=== PATIENT | male | born 1960 | race Two or more races ===

== ENCOUNTER 2018-06-29 20:45 | Emergency (ER) | payer OTHER ==
[~2018-06-29] VITALS: Ht 180.3 cm; Wt 81.6 kg
[2018-06-29 21:22] LABS: Basophils # (auto) 0.1 uL; Eosinophils # (auto) 0.1 uL; Eosinophils % (auto) 1.3 % (0.0-7.0); Hematocrit 45.3 % (41.0-53.0); Hemoglobin 15.3 g/dL (13.5-17.5); Lymphocytes # (auto) 3.2 uL; Lymphocytes % (auto) 35.9 % (10.0-50.0); Mean Corpuscular Hemoglobin 33.2 pg (28.0-32.0); Mean Corpuscular Hgb Conc. 33.8 g/dL (32.0-36.0); Mean Corpuscular Volume 98.2 fL (80.0-100.0); Monocytes # (auto) 0.7 uL; Monocytes % (auto) 8.4 % (0.0-12.0); Neutrophils # (auto) 4.7 uL; Neutrophils % (auto) 53.4 % (37.0-80.0); Nucleated Red Blood Cells % 0.1 %; Platelet Count (auto) 147 10^3/uL (140-450); Red Blood Cells 4.61 10^6/uL (4.5-5.90); Red Cell Distribution Width 13.5 % (11.8-14.3); White Blood Cell 8.8 10^3/uL (4.4-10.8)
[2018-06-29 21:41] LABS: Alanine Aminotransferase 109 U/L (16-61); Albumin 4.1 g/dL (3.4-5.0); Anion Gap 7 (5-15); Aspartate Aminotransferase 79 U/L (15-37); Blood Urea Nitrogen 14 mg/dL (7-18); Calcium 8.2 mg/dL (8.5-10.1); Carbon Dioxide 23 mmol/L (21-32); Chloride 110 mmol/L (98-107); Glucose 110 mg/dL (74-106); Potassium 3.4 mmol/L (3.5-5.1); Sodium 140 mmol/L (136-145)
[2018-06-29 21:46] LABS: Alkaline Phosphatase 100 U/L (45-117); BUN/Creatinine Ratio 18.7; Bilirubin, Total 0.4 mg/dL (0.2-1.0); GFR African American > 60 mL/min; GFR Non-African American > 60 mL/min; Total Protein 7.7 g/dL (6.4-8.2)
[2018-06-29 22:26] VITALS: BP 168/100
[2018-06-29 22:27] LABS: Urine WBC None Seen /hpf (0 - 3)
[2018-06-29 22:51] LABS: Urine Bacteria NONE SEEN /hpf (None Seen); Urine Blood Negative /uL (Negative); Urine Specific Gravity 1.001 (1.001-1.035)
[2018-06-29 23:09] LABS: Amphetamine Screen, Urine NEGATIVE (NEGATIVE); Barbiturate Scree,Urine NEGATIVE (NEGATIVE); Benzodiazephine Screen, Urine NEGATIVE (NEGATIVE); Cannabinoid Screen, Urine NEGATIVE (NEGATIVE); Cocaine Screen, Urine NEGATIVE (NEGATIVE); Opiate Scree,Urine NEGATIVE (NEGATIVE); Phencyclidine Screen, Urine NEGATIVE (NEGATIVE)
[2018-06-30] MEDS ORDERED: LIDOCAINE 2% (LOCAL ANESTH.) PF 5ml SDV ONE ×2 (01:28→01:30)
== END 2018-06-29 23:50 | disposition left against medical advice (07) ==
LOC: ER 20:45 → EDBD 20:45 → ER 22:54
DX: F10.129 Alcohol abuse with intoxication, unspecified (principal); I10 Essential (primary) hypertension; R51 Headache; R00.0 Tachycardia, unspecified; Y90.8 Blood alcohol level of 240 mg/100 ml or more
CPT/HCPCS: 36415; 70450; 80053; 80307; 80320; 81001; 85025; 93005

== ENCOUNTER 2018-06-30 00:54 | Emergency (ER) | payer OTHER ==
[~2018-06-30] VITALS: Ht 177.8 cm; Wt 58.1 kg
[2018-06-30] MEDS ORDERED: TETANUS-DIPTH-ACEL PERTUSSIS 0.5ML SYRG IM ONE (01:15)
[2018-06-30] MEDS ORDERED: LIDOCAINE HCL 2 % INJ 2ML MPF NEB ONE (01:30)
[2018-06-30] MEDS ORDERED: LIDOCAINE 2%HCL (LOCAL ANESTH.) INJ 10ml MDV IJ ONE ×2 (01:45)
[2018-06-30 02:23] VITALS: BP 159/90
== END 2018-06-30 02:42 | disposition home or self-care (01) ==
LOC: ER 00:54 → EDBD 00:54 → ER 02:42
DX: S01.81XA Laceration without foreign body of other part of head, initial encounter (principal); F10.129 Alcohol abuse with intoxication, unspecified; I10 Essential (primary) hypertension; W22.8XXA Striking against or struck by other objects, initial encounter; Y93.89 Activity, other specified; Y92.89 Other specified places as the place of occurrence of the external cause; Y99.8 Other external cause status
CPT/HCPCS: 12014; 70450; 90471; 90715; 99284; J2001; J7030

== ENCOUNTER 2018-07-07 12:15 | Emergency (ER) | payer OTHER, MEDICAID ==
[~2018-07-07] VITALS: Ht 175.3 cm; Wt 74.8 kg
[2018-07-07 12:23] VITALS: BP 182/89
== END 2018-07-07 14:55 | disposition home or self-care (01) ==
LOC: ER 12:15
DX: S01.81XD Laceration without foreign body of other part of head, subsequent encounter (principal); I10 Essential (primary) hypertension; W19.XXXD Unspecified fall, subsequent encounter